=== PATIENT | female | born 1965 | race Two or more races ===

== ENCOUNTER 2020-07-28 07:48 | Outpatient (CLI) | payer OTHER | END 2020-07-28 07:58 | disposition home or self-care (01) | LOC: SONOGRAMA 07:48 | PROVIDERS: ATTEND Pathology Anatomic Pathology & Clinical Pathology | DX: E04.1 Nontoxic single thyroid nodule (principal) ==

== ENCOUNTER 2022-08-20 07:51 | Outpatient (CLI) | payer OTHER | END 2022-08-20 07:54 | disposition home or self-care (01) | LOC: SONOGRAMA 07:51 | PROVIDERS: ATTEND Pathology Anatomic Pathology & Clinical Pathology | DX: D34 Benign neoplasm of thyroid gland (principal); E07.9 Disorder of thyroid, unspecified; E04.1 Nontoxic single thyroid nodule ==